=== PATIENT | female | born 1965 ===

== ENCOUNTER 2021-10-18 17:31 | Observation (INO) ==
[2021-10-18 20:36] LABS: ABS Eosinophils 0.1 10^3/ul (0-0.6); ABS Monocytes 0.4 10^3/ul (0-0.8); ABS Neutrophils 3.5 10^3/ul (1.5-7.7); Eosinophil % 1.3 %; Hematocrit 45 % (35-47); Hemoglobin 15.1 g/dL (12.0-16.0); Lymphocyte % 19.7 %; Mean Corpuscular HGB Conc 34 g/dL (31-36); Mean Corpuscular Hemoglobin 31 pg (27-31); Mean Corpuscular Volume 92 fL (80-97); Mean Platelet Volume 8.9 fL (7.4-10.4); Platelet Count 211 10^3/uL (150-450); Red Blood Count 4.84 10^6 /uL (3.70-4.87); Red Cell Distribution Width 13 % (10-15); White Blood Count 4.9 10^3/uL (3.5-10.8)
[2021-10-18 20:55] LABS: Albumin 4.3 g/dL (3.2-5.2); Albumin/Globulin Ratio 1.5 (1-3); C Reactive Protein 4.2 mg/L (<8.01); Calcium 9.2 mg/dL (8.6-10.3); Globulin 2.9 g/dL (2-4); Potassium 3.7 mmol/L (3.5-5.0); Total Bilirubin 0.9 mg/dL (0.2-1.0); Total Protein 7.2 g/dL (6.4-8.9); eGFR CKD-EPI 103.6 (>60)
[2021-10-18] MEDS ORDERED: Iohexol 350 (CONTRAST) 500 ML MDV IV ONE (21:04)
[2021-10-18 22:22] LABS: High Sensitivity Troponin 1 Hr 9 pg/mL (<15)
[2021-10-19] MEDS ORDERED: Ondansetron 4 mg VIAL 2 MG/ML 2 ml VIAL IV PRN (00:34)
[2021-10-19 00:42] LABS: INR 1.16 (0.86-1.15)
[2021-10-19 02:05] LABS: HCG Pregnancy 2.22 mIU/mL
[2021-10-19 02:14] LABS: TSH Ultra Thyroid Stim Horm 5.13 mcIU/mL (0.34-5.60)
[2021-10-19] MEDS ORDERED: fentaNYL 100 mcg/2 ml 50 MCG/ML VIAL ONE (14:23)
[2021-10-19 14:24] LABS: Body Fluid WBC 204184 /mcL
[2021-10-19 14:51] LABS: Body Fluid Appearance Bloody; Body Fluid Color Red; Body Fluid Source Pleural Fluid
[2021-10-19 14:53] LABS: Body Fluid Mono 91 %; Body Fluid Total Cells Counted 200
[2021-10-20 07:18] LABS: Hematocrit 41 % (35-47); Hemoglobin 14.1 g/dL (12.0-16.0)
[2021-10-20] MEDS ORDERED: Iohexol 350 (CONTRAST) 500 ML MDV IV ONE (11:36)
[2021-10-20 15:25] LABS: AFP Tumor Marker 1.5 ng/mL
[2021-10-20 15:42] VITALS: BP 143/85
[2021-10-21 16:33] LABS: Albumin, BF 3.1 g/dL; Fluid Type, Albumin PLEURAL
[2021-10-21 16:35] LABS: Fluid Type, Protein, Total PLEURAL; Total Protein, BF 4.9 g/dL
[2021-10-21 16:44] LABS: Glucose, BF < 2 mg/dL
[2021-10-21 17:05] LABS: Lactate Dehydrogenase, BF 2028 U/L
[2021-10-29 17:27] LABS: BLYM Result Summary Positive; BLYM Tissue ID CN22-476
[2021-10-30 13:48] LABS: Case Number CR-22-22118
[2021-10-30 15:32] LABS: BLYM Referral Reason MYC and BCL6; BLYM Result Summary Positive; BLYM Source Mediastinum
== END 2021-10-20 18:30 | disposition home or self-care (01) ==
LOC: EDHOLD 17:31 → ED 17:31 → SUATTDRO 10-19 00:34 → MED 10-19 03:45
PROVIDERS: ADMIT Hospitalist; ATTEND Internal Medicine